=== PATIENT | female | born 1965 | race Caucasian/White ===

== ENCOUNTER 2018-05-20 22:39 | Emergency (ER) | payer OTHER ==
[~2018-05-20] VITALS: Ht 139.7 cm; Wt 60.3 kg
--- NOTE | 2018-05-20 22:48 | NUR ---
PT TAKEN TO BED 4
[2018-05-20 22:52] VITALS: BP 114/74
--- NOTE | 2018-05-20 22:57 | NUR ---
53/F. CO: RIGHT FLANK PAIN. 12/20. KIDNEY STONE REMOVAL 08/2018. AFEBRILE. EVEN UNLABORED BREATHING. AOX4. ABLE TO VERBALIZE NEEDS. RX ZOLOFT. ABD SOFT, NONTENDER. LBM 05/20. MADE AWARE. CONTINUE TO MONITOR.
--- NOTE | 2018-05-20 23:00 | NUR ---
Dr. Colunga evaluating patient at bedside.
[2018-05-20] MEDS ORDERED: NACL 0.9% 1,000 ML IV ONE ×2 (23:02→23:45)
[2018-05-20] MEDS ORDERED: ONDANSETRON 4 MG/2 ML VIAL IVP ONE (23:05)
[2018-05-20] MEDS ORDERED: MORPHINE SULFATE 4 MG/ML SYR IVP ONE (23:05)
[2018-05-20 23:18] LABS: APPEARANCE,URINE SL CLOUDY (CLEAR); BILIRUBIN,URINE NEGATIVE (NEGATIVE); BLOOD, URINE 2+ (NEGATIVE); COLOR,URINE YELLOW (YELLOW); LEUKOCYTE ESTERASE ,URINE TRACE (NEGATIVE); NITRITE, URINE POSITIVE (NEGATIVE); UGLUCOSE TRACE (NEGATIVE)
[2018-05-20 23:20] LABS: BASOPHILS % (AUTO) 0.3 % (0.0-2.0); EOSINOPHILS % (AUTO) 0.3 % (0.0-4.0); HEMATOCRIT 37.4 % (36-48); HEMOGLOBIN 11.9 g/dL (12.0-16.0); LYMPHOCYTES # (AUTO) 0.6 K/uL (2.5-16.5); MEAN CORPUSCULAR HEMOGLOBIN 27 pg (27-31); MEAN CORPUSCULAR HGB CONC 32 g/dL (33-37); MEAN CORPUSCULAR VOLUME 84.7 fL (80-94); MONOCYTES # (AUTO) 0.4 K/uL (0.8-1.0); MONOCYTES % (AUTO) 3.7 % (1.7-9.3); PLATELET COUNT (AUTO) 238 K/uL (140-450); RED BLOOD CELL COUNT(AUTO) 4.41 MIL/uL (4.20-5.40); RED CELL DISTRIBUTION WIDTH 15.7 % (11.6-13.7)
[2018-05-20 23:27] LABS: ANION GAP 12.3 (8-16); CARBON DIOXIDE 28.2 mmol/L (21-32); CREATININE 1.1 mg/dL (0.6-1.3); POTASSIUM 3.5 mmol/L (3.5-5.1)
[2018-05-20 23:32] LABS: ALBUMIN 3.6 g/dL (3.4-5.0); TOTAL BILIRUBIN 0.4 mg/dL (0.0-1.0)
[2018-05-20 23:34] LABS: LYMPHOCYTES % (AUTO) 4.7 % (20.5-51.1)
[2018-05-20 23:36] LABS: RBC,URINE 11-20 (MOD) /HPF (0-5)
[2018-05-20] MEDS ORDERED: KETOROLAC 30 MG/ML VIAL IVP ONE (23:45)
[2018-05-21] MEDS ORDERED: cefTRIAXone 1,000 MG VIAL ONE (00:02)
[2018-05-21 01:00] VITALS: BP 112/71
--- NOTE | 2018-05-21 01:00 | NUR ---
Patient discharged with v/s stable. Written and verbal after care instructions given and explained. Patient alert, oriented and verbalized understanding of instructions. Ambulatory with steady gait. All questions addressed prior to discharge. ID band removed. Patient advised to follow up with PMD. Rx of KEFLEX AND NAPROSYN given. Patient educated on indication of medication including possible reaction and side effects. Opportunity to ask questions provided and answered.
== END 2018-05-21 01:00 | disposition home or self-care (01) ==
LOC: EDSEX 22:39 → MED 22:39
DX: N20.0 Calculus of kidney (principal); N39.0 Urinary tract infection, site not specified; Z87.442 Personal history of urinary calculi
CPT/HCPCS: 36415; 74176; 80053; 81001; 81025; 83605; 83690; 85025; 85610; 85730; 87040; 87086; 87186; 96365; 96375; 99284; J0696; J1885; J2270; J2405

== ENCOUNTER 2021-06-15 01:30 | Inpatient (IN) | payer OTHER, SELFPAY ==
[~2021-06-15] VITALS: Ht 139.7 cm; Wt 60.8 kg
[2021-06-15 01:46] VITALS: BP 102/68
--- NOTE | 2021-06-15 01:50 | NUR ---
Dr. Devine at triage to exam patient.
[2021-06-15] MEDS ORDERED: MORPHINE SULFATE 4 MG/ML SYR IVP ONE (01:55)
[2021-06-15] MEDS ORDERED: ONDANSETRON 4 MG/2 ML VIAL IVP ONE (01:55)
[2021-06-15] MEDS ORDERED: NACL 0.9% 1,000 ML IV ONE ×2 (01:55→05:25)
--- NOTE | 2021-06-15 01:56 | NUR ---
PT AMBULATORY W STEADY GAIT TO BED 08.
--- NOTE | 2021-06-15 02:04 | NUR ---
PT TO CT VIA WHEEL CHAIR.
--- NOTE | 2021-06-15 02:04 | NUR ---
Patient taken to CT scan via wheel chair.
[2021-06-15 02:09] LABS: BASOPHILS % (AUTO) 0.1 % (0.0-2.0); EOSINOPHILS # (AUTO) 0.1 K/uL (0-0.4); EOSINOPHILS % (AUTO) 0.4 % (0.0-4.0); HEMATOCRIT 32.2 % (36-48); HEMOGLOBIN 10.5 g/dL (12.0-16.0); LYMPHOCYTES # (AUTO) 0.6 K/uL (2.5-16.5); LYMPHOCYTES % (AUTO) 4.5 % (20.5-51.1); MEAN CORPUSCULAR HEMOGLOBIN 28 pg (27-31); MEAN CORPUSCULAR HGB CONC 33 g/dL (33-37); MEAN CORPUSCULAR VOLUME 87.2 fL (80-94); MONOCYTES # (AUTO) 1.4 K/uL (0.8-1.0); MONOCYTES % (AUTO) 9.8 % (1.7-9.3); NEUTROPHILS # (AUTO) 12.3 K/uL (1.8-7.7); NEUTROPHILS % (AUTO) 85.2 % (42.2-75.2); PLATELET COUNT (AUTO) 399 K/uL (140-450); RED BLOOD CELL COUNT(AUTO) 3.69 MIL/uL (4.20-5.40); RED CELL DISTRIBUTION WIDTH 12.9 % (11.6-13.7); WHITE BLOOD COUNT (AUTO) 14.4 K/uL (4.8-10.8)
--- NOTE | 2021-06-15 02:10 | NUR ---
PT HAS SAT AT 90% . GIVEN 2L NS CANNULA. NOW 97 %
[2021-06-15 02:12] LABS: APPEARANCE,URINE CLOUDY (CLEAR); BILIRUBIN,URINE NEGATIVE (NEGATIVE); BLOOD, URINE 2+ (NEGATIVE); COLOR,URINE YELLOW (YELLOW); LEUKOCYTE ESTERASE ,URINE 3+ (NEGATIVE); NITRITE, URINE NEGATIVE (NEGATIVE); UGLUCOSE NEGATIVE (NEGATIVE)
[2021-06-15 02:20] LABS: RBC,URINE 0-5 /HPF (0-5)
[2021-06-15 02:21] LABS: WBC,URINE 20-60 /HPF (0-5)
[2021-06-15 02:26] LABS: ALBUMIN 2.4 g/dL (3.4-5.0); CARBON DIOXIDE 28.5 mmol/L (21-32); CREATININE 1.3 mg/dL (0.6-1.3); POTASSIUM 3.5 mmol/L (3.5-5.1); TOTAL BILIRUBIN 0.7 mg/dL (0.0-1.0)
--- NOTE | 2021-06-15 03:00 | NUR ---
56 y/o F BIB DAUGHTER FOR RUQ PAIN 6/10 FOR 10 DAYS. PT STATES SHE HAS FATTY LIVER X 4 YEARS AND SHE GETS FLAREUPS THAT ARE EXACBERATED BY COUGHING, UPSET STOMACH, OR TAKING TOO MANY PAIN MEDS. DENIES N/F/V/D; SKIN IS PINK/WARM/DRY; AAOX4 WITH EVEN AND STEADY GAIT; LUNGS CLEAR BL; PT IS LOW SAT 90% , PT PUT ON 2L NS, PT DENIES SOB. HR EVEN AND REGULAR; PATIENT STATES PAIN OF 7/10 AT THIS TIME; VSS; PATIENT POSITIONED FOR COMFORT; HOB ELEVATED; BEDRAILS UP X2; BED DOWN. 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 PT TAKES HTN MEDS TO PREVENT KIDNEY FAILURE.
--- NOTE | 2021-06-15 03:47 | NUR ---
PT STATES RELIEF OF PAIN . PAIN 2/10. ALL VSS
[2021-06-15] MEDS ORDERED: cefTRIAXone 2,000 MG in DEXTROSE 5% 100 ML IV ONE (05:25)
[2021-06-15] MEDS ORDERED: cefTRIAXone 2,000 MG VIAL ONE (05:29)
[2021-06-15] MEDS ORDERED: BEN10 PO (06:13)
[2021-06-15] MEDS ORDERED: ECON15CR TP (06:18)
[2021-06-15] MEDS ORDERED: METF-1253 PO (06:21)
[2021-06-15] MEDS ORDERED: FAMO20TA99 PO (06:24)
[2021-06-15] MEDS ORDERED: SERT25TA PO (06:30)
[2021-06-15] MEDS ORDERED: NOREPINEPHRINE 4 MG in DEXTROSE 5% 250 ML IV ONE (06:55)
[2021-06-15] MEDS ORDERED: NOREPINEPHRINE 4 MG/4 ML VIAL IV ONE (07:07)
--- NOTE | 2021-06-15 07:26 | NUR ---
Pt report given to JOSE D BUTLER. Transfer of care at this time.
--- NOTE | 2021-06-15 07:28 | NUR ---
RECEIVED REPORT FROM LORENA FARAH. TRANSFER OF CARE AT THIS TIME.
--- NOTE | 2021-06-15 07:28 | NUR ---
Shaquille martins in [facility] - 06/15/21 at 0745 by [facility] RECEIVED REPORT FROM JOSE D FARAH. TRANSFER OF CARE AT THIS TIME.
--- NOTE | 2021-06-15 07:46 | NUR ---
PT ADMITTD UNDER DR. PEREZ TELE-METRY ROOM 107B. ETA FOR BEDSIDE REPORT 10 MINUTES TO JOSE D ODONNELL.
[2021-06-15 08:40] VITALS: BP 101/57
--- NOTE | 2021-06-15 08:40 | NUR ---
PATIENT CAME FROM ER WHEELED BY 2 ER NURSE ON A GURNEY. RN GRACIE GAVE REPORT FOR CONTINUITY OF CARE. PATIENT ALERT ORIENTED. ON O2 AT 4L/MIN VIA NASAL CANULA. ON TELE BOX. NO SHORTNESS OF BREATH OR CONGESTION. COMPLAIN OF PAIN ON HEAD WHEN SHE COUGH OCCASIONAL IV SITE ON LEFT AC LOIDA 18. ORIENTED TO ROOM, TOILET, CALL LIGHT VISITING HOURS AND FOR FALL PREVENTION..
--- NOTE | 2021-06-15 08:46 | NUR ---
Patient will be admitted to care of Dr. Lomax. Admited to Tele. Will go to room 107B. Belongings list completed. [facility]
--- NOTE | 2021-06-15 09:25 | NUR ---
DR. PEREZ AT BED SIDE.
--- NOTE | 2021-06-15 10:29 | NUR ---
PATIENT ALERT ASKING IF SHE CAN DRINK WATER INFORM DR. PEREZ FOR DIET ORDER AND RESPONSE [facility] DIET. PATIENT AWARE AND GIVEN WATER AND JELLO AT THIS TIME.
--- NOTE | 2021-06-15 10:49 | NUR ---
PATIENT COMPLAINING OF COUGH AND BACK OF HEAD PAIN WHEN SHE COUGHING NO MEDS ORDER. INFORM DR. PEREZ WAITING FOR RESPONSE.
[2021-06-15 12:00] VITALS: BP 100/56
--- NOTE | 2021-06-15 12:20 | NUR ---
PATIENT AWAKE EATING LUNCH AT THIS TIME. ALL SAFETY MEASURE IN PLACE.
[2021-06-15] MEDS ORDERED: ONDANSETRON 4 MG/2 ML VIAL IM/IVP PRN (12:35)
[2021-06-15] MEDS ORDERED: ACETAMINOPHEN 325 MG TAB PO PRN (12:35)
[2021-06-15] MEDS ORDERED: POTASSIUM CHLORIDE 10 MEQ TABER PO PRN (12:35)
[2021-06-15] MEDS ORDERED: DOCUSATE SODIUM 100 MG GELCAP PO PRN (12:35)
[2021-06-15] MEDS ORDERED: ZOLPIDEM 5 MG TAB PO PRN (12:35)
[2021-06-15] MEDS ORDERED: MORPHINE SULFATE 2 MG/ML SYR IVP PRN (12:35)
[2021-06-15] MEDS: guaiFENesin DM 200/20 MG-10 ML 10 ML UDC PO PRN ×2 (12:55→20:48)
[2021-06-15] MEDS: HYDROcodone/APAP 7.5/325 MG 1 TAB PO PRN ×2 (12:56→22:30)
[2021-06-15] MEDS: NACL 0.9% 1,000 ML IV SCH (12:56)
--- NOTE | 2021-06-15 13:08 | NUR ---
Patient given pain medication and cough medication.
[2021-06-15 13:58] LABS: PROTHROMBIN TIME 10.8 secs (10.8-13.4)
--- NOTE | 2021-06-15 15:07 | NUR ---
PATIENT AWAKE ON PHONE NO DISTRESS NOTED. IV RUNNING AT 100 CC/HOUR NO FLUID OVER LOAD NOTED. NO FEVER OR CHILLS. NO ADVERSE REACTION NOTED ON ANTIBIOTIC THERAPY. CALL LIGHT WITH IN EASY REACH.
[2021-06-15 15:43] LABS: AMYLASE 28 U/L (25-115); CHOL/HDL RATIO 6.6 (1-4.5); FREE T4 (FREE THYROXINE) 1.07 ng/dL (0.76-1.46); HDL CHOLESTEROL 16 mg/dL (40-60); LDL (CALC) 66 mg/dL (60-100); LIPASE 142 U/L (73-393); PHOSPHORUS 2.6 mg/dL (2.5-4.9); THYROID STIMULATING HORMONE 0.58 uIU/mL (0.34-3.74); TRIGLYCERIDES 124 mg/dL (30-150)
[2021-06-15 16:00] VITALS: BP 93/60
--- NOTE | 2021-06-15 16:21 | NUR ---
PATIENT HAS BEEN SCREENED AND CATEGORIZED MODERATE NUTRITION RISK. PATIENT WILL BE SEEN WITHIN 3-5 DAYS OF ADMISSION. KAIN HERNANDEZ RD
--- NOTE | 2021-06-15 18:28 | NUR ---
PATIENT ON BED RESTING NO DISCOMFORT. IV RUNNING AT 100 CC/HOUR. NO FEVER CHILLS OR COMPLAIN OF PAIN. DAUGHTER AT BED SIDE. ALL SAFETY MEASURE IN PLACE.
--- NOTE | 2021-06-15 19:29 | NUR ---
GAVE REPORT TO CHIEF MEDICAL TECHNOLOGIST NURSE FOR CONTINUITY OF CARE.
[2021-06-15 20:00] VITALS: BP 107/56
[2021-06-16] VITALS: BP 90/57
[2021-06-16] MEDS: NACL 0.9% 1,000 ML IV SCH ×3 (01:16→18:26)
[2021-06-16 04:00] VITALS: BP 92/65
--- NOTE | 2021-06-16 06:00 | NUR ---
Pt A/O x4, no Sob on RA at this time, no c/o pain v/s stable, tolerated ivf as ordered, denies nausea or abd pain . Continue to monitor with plan of care.
[2021-06-16 07:08] LABS: T4 (THYROXINE) 6.4 ug/dL (4.5-12.0)
[2021-06-16 07:42] LABS: BASOPHILS % (AUTO) 0.2 % (0.0-2.0); EOSINOPHILS # (AUTO) 0.1 K/uL (0-0.4); EOSINOPHILS % (AUTO) 1.7 % (0.0-4.0); HEMATOCRIT 28.5 % (36-48); HEMOGLOBIN 9.3 g/dL (12.0-16.0); LYMPHOCYTES # (AUTO) 0.8 K/uL (2.5-16.5); LYMPHOCYTES % (AUTO) 10.2 % (20.5-51.1); MEAN CORPUSCULAR HEMOGLOBIN 29 pg (27-31); MEAN CORPUSCULAR HGB CONC 33 g/dL (33-37); MEAN CORPUSCULAR VOLUME 88.5 fL (80-94); MONOCYTES # (AUTO) 0.9 K/uL (0.8-1.0); NEUTROPHILS % (AUTO) 75.9 % (42.2-75.2); PLATELET COUNT (AUTO) 359 K/uL (140-450); RED BLOOD CELL COUNT(AUTO) 3.21 MIL/uL (4.20-5.40); RED CELL DISTRIBUTION WIDTH 13.2 % (11.6-13.7); WHITE BLOOD COUNT (AUTO) 7.9 K/uL (4.8-10.8)
[2021-06-16 07:45] LABS: CARBON DIOXIDE 26.4 mmol/L (21-32); CREATININE 0.9 mg/dL (0.6-1.3); POTASSIUM 3.4 mmol/L (3.5-5.1)
[2021-06-16 08:00] VITALS: BP 111/68
[2021-06-16] MEDS: PANTOPRAZOLE 40 MG TABEC PO SCH (10:05)
[2021-06-16] MEDS ORDERED: INSULIN LISPRO SLIDING SCALE 100 UNITS/ML VIAL SUBQ PRN (12:35)
[2021-06-16] MEDS ORDERED: DEXTROSE 50% 50 ML SYR IVP PRN (12:35)
[2021-06-16] MEDS: BLOOD GLUCOSE MONITORING 1 DEV DEV FS SCH ×2 (16:30→20:29)
[2021-06-16] MEDS: guaiFENesin DM 200/20 MG-10 ML 10 ML UDC PO PRN (17:01)
--- NOTE | 2021-06-16 19:25 | NUR ---
PT ENDORSED TO RETAIL MERCHANDISER TECHNICIAN NURSE FOR CONTINUITY OF CARE. POC DISCUSSED.
[2021-06-16 20:00] VITALS: BP 129/60
[2021-06-16] MEDS: HYDROcodone/APAP 7.5/325 MG 1 TAB PO PRN (20:27)
[2021-06-17] MEDS: HYDROcodone/APAP 7.5/325 MG 1 TAB PO PRN (00:23)
[2021-06-17 04:00] VITALS: BP 131/58
[2021-06-17] MEDS: NACL 0.9% 1,000 ML IV SCH ×2 (05:24→13:32)
[2021-06-17 06:48] LABS: BASOPHILS % (AUTO) 0.3 % (0.0-2.0); EOSINOPHILS # (AUTO) 0.1 K/uL (0-0.4); EOSINOPHILS % (AUTO) 2.1 % (0.0-4.0); HEMATOCRIT 28.2 % (36-48); HEMOGLOBIN 9.3 g/dL (12.0-16.0); LYMPHOCYTES # (AUTO) 0.9 K/uL (2.5-16.5); LYMPHOCYTES % (AUTO) 13.8 % (20.5-51.1); MEAN CORPUSCULAR HEMOGLOBIN 29 pg (27-31); MEAN CORPUSCULAR HGB CONC 33 g/dL (33-37); MEAN CORPUSCULAR VOLUME 87.4 fL (80-94); MONOCYTES # (AUTO) 0.8 K/uL (0.8-1.0); MONOCYTES % (AUTO) 13.3 % (1.7-9.3); NEUTROPHILS # (AUTO) 4.3 K/uL (1.8-7.7); NEUTROPHILS % (AUTO) 70.5 % (42.2-75.2); PLATELET COUNT (AUTO) 454 K/uL (140-450); RED BLOOD CELL COUNT(AUTO) 3.22 MIL/uL (4.20-5.40); RED CELL DISTRIBUTION WIDTH 13.4 % (11.6-13.7); WHITE BLOOD COUNT (AUTO) 6.1 K/uL (4.8-10.8)
--- NOTE | 2021-06-17 07:15 | NUR ---
RECEIVED REPORT FROM GAS STATION ATTENDANT. PT IS AWAKE, WITH BREATHING UNLABORED, AND ON RA. A&OX4. ON CARB CONTROLLED DIET. CONTINENT OF THE BOWEL AND BLADDER. IV SITE ON FA, RUNNING AT 100 ML/HR NS. SKIN IS INTACT, WARM, DRY. PT IS STABLE. PLAN OF CARE DISCUSSED.
[2021-06-17 07:33] LABS: CARBON DIOXIDE 26.8 mmol/L (21-32); CREATININE 0.9 mg/dL (0.6-1.3); POTASSIUM 3.8 mmol/L (3.5-5.1)
[2021-06-17] MEDS: BLOOD GLUCOSE MONITORING 1 DEV DEV FS SCH ×4 (07:54→20:52)
[2021-06-17] MEDS: PANTOPRAZOLE 40 MG TABEC PO SCH (08:57)
--- NOTE | 2021-06-17 09:30 | NUR ---
PT IS RESTING IN SEMI FOWLERS POSITION. NO DISTRESS NOTED. PT DENIES PAIN. AMBULATED TO THE RESTROOM WITHOUT ASSIST. PT IS STABLE.
--- NOTE | 2021-06-17 11:08 | NUR ---
DC PLANNING: RECEIVED A CALL FROM [employer] [phone] SPOKE WITH COLBY CM UPDATED HER PT'S CLINICAL. PER COLBY 06/15 AND 06/16/21 GOT APPROVED WILL FAX THE HARD COPY. PER COLBY SHE CAN BE REACHED FOR ANY DC PLAN. CM TO FOLLOW
--- NOTE | 2021-06-17 11:47 | NUR ---
PT STATES SHE TAKES ZOLOFT 25 MG PO IN THE MORNING ONCE A DAY. PROVIDED THIS INFORMATION TO DR. SYKES AND HE STATED TO PLACE THE ORDER FOR THE MEDICATION DAILY.
[2021-06-17] MEDS ORDERED: SERTRALINE 50 MG TAB PO SCH (11:52)
--- NOTE | 2021-06-17 12:00 | NUR ---
PT WAS AWAKE, LYING ON HER BED. NO DISTRESS AT THIS TIME. WILL CONTINUE TO MONITOR.
--- NOTE | 2021-06-17 12:47 | NUR ---
DC PLANNING: THE PATIENT ADMITTED FROM HOME WITH C/O RUQ PAIN WITH A H/O KIDNEY STONES AND UTI'S. CT SCAN ABD SHOWS RIGHT UVJ OBSTRUCTIVE UROPATHY WITH HYDRONEPHROSIS. WBC'S 14.4, PATIENT STARTED ON ROCEPHIN IV, ORDERS FOR UROLOGY CONSULT. CM SPOKE WITH THE PATIENT AT BEDSIDE AND CONFIRMED HER ADDRESS AND PHONE NUMBER. 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 SHE SEES HER PCP DR ESCOBAR REGULARLY AND WILL BE FOLLOWING UP WITH DR HUTTON HER NEPHROLOGY GROUP IS CLOSING. SHE HAS DME OF A GLUCOMETER AND HAS NO ACTIVITY LIMITATIONS OR DC NEEDS AT THIS TIME. THE PATIENT WILL RETURN HOME WHEN CLINICALLY STABLE FOR DC, CM WILL FOLLOW. Addendum: 06/17/21 at 1254 by Nalini Kirby CM Amended: Links added. Addendum: 06/18/21 at 1222 by Nalini Kirby CM DC PLANNING: PATIENT PENDING SENSITIVITY FOR URINE CULTURES, PRELIMINARY RESULTS OF GRAM NEGATIVE RODS. ATTENDING MD ANTICIPATES PATIENT WILL NEED IV ABX, JOVAN LEFT MESSAGES FOR JOVAN MEAD AT [facility], ([phone]), ALSO FAXED ORDER FOR HOME HEALTH AND CLINICALS TO ANGELINA AT [facility] ([phone]). CM WILL FOLLOW AND PROVIDE INFORMATION ON IV ABX NEEDED ONCE THAT IS DETERMINED. CM WILL FOLLOW. Addendum: 06/18/21 at 1357 by Nalini Kirby CM DC PLANNING: JOVAN SPOKE WITH COLBY AT [facility] ([phone]), ENDORSED POTENTIAL NEED FOR HOME HEALTH FOR IV ABX. COLBY FAXED A LIST OF CONTRACTED AGENCIES, [facility] IS PREFERRED AGENCY. JOVAN CALLED [facility] ([phone]), MESSAGE LEFT FOR THE COORDINATOR, CLINICAL PACKET AND ORDERS FOR HOME HEALTH FAXED TO [facility] AT [phone]. SENSITIVITIES FOR URINE CULTURE NOT YET RESULTED, FINAL IV ABX ORDERS NOT YET IN SYSTEM. JOVAN SPOKE WITH THE PATIENT AT BEDSIDE TO EXPLAIN CURRENT ARRANGEMENTS AND BARRIERS, MIDLINE ACCESS TO BE PLACED TODAY. IF ABX ARE ORDERED AFTER JOVAN LEAVES, ORDER NEEDS TO BE FAXED TO [facility] AT ABOVE FAX NUMBER AND PHONE FOLLOW UP TO CONFIRM SERVICE AT THE PHONE NUMBER LISTED ABOVE IS ALSO NEEDED. JOVAN WILL FOLLOW. Addendum: 06/18/21 at 1411 by Nalini Kirby CM DC PLANNING: CM SPOKE WITH DIANE AT [facility], THE PATIENTS REFERRAL WILL BE PROCESSED AND THEY WILL START WORKING ON AUTHORIZATION FOR SERVICES. CM WILL FOLLOW. Addendum: 06/18/21 at 1636 by Nalini Kirby CM DC PLANNING: SENSITIVITY FOR UC RESULTED E-COLI, PATIENT WILL NOT NEED IV ABX. CM SPOKE WITH RAMIRO AT [facility] TO CANCEL THE REFERRAL. CM WILL FOLLOW.
[2021-06-17] MEDS: cefTRIAXone 2,000 MG in DEXTROSE 5% 100 ML IV SCH (12:56)
[2021-06-17] MEDS: guaiFENesin DM 200/20 MG-10 ML 10 ML UDC PO PRN ×2 (14:22→21:59)
--- NOTE | 2021-06-17 14:22 | NUR ---
GAVE ROBITUSSIN MEDICATION ORDERED FOR PT'S COUGH. WILL MONITOR COUGH.
[2021-06-17 16:00] VITALS: BP 118/69
--- NOTE | 2021-06-17 16:00 | NUR ---
SEEN PT LYING ON HER BED, AWAKE. PT BREATHING UNLABORED. WILL CONTINUE TO MONITOR.
--- NOTE | 2021-06-17 16:08 | NUR ---
DC PLANNING PATIENT IS A 56 YR OLD FEMALE WHO PRESEMTED TO THE [facility]/ED ON 06/15/21 FOR PAIN IN RIGHT UPPER QUADRANT THAT PATIENT REPORTS HAS BEEN ON AND OFF FOR THE PAST COUPLE OF WEEKS. SW MET WITH CLIENT AND (DENVER KENNEDY) AT BEDSIDE TO DISCUSS AND GATHER COLLATERAL INFORMATION. PATIENT REPORTS LIVING IN A HOME WITH HER PARTNER, DAUGHTER, DAUGHTERS BOYFRIEND, AND GRANDCHILDREN. PATIENT IDENTIFIED EMERGENCY CONTACT AND MEDICAL DECISION MAKER DON MARCIA () [phone]. SW INQUIRED ON A.D; PATIENT DENIED CURRENTLY HAVING ONE IN PLACE AT THIS TIME. SW PROVIDED PATIENT AND WITH EDUCATION ON A.D AND OFFERED TO LEAVE A.D PACKET WITH CLIENT TO REVIEW WHEN SHE BELIEVED THE TIME WAS RIGHT. PATIENT DECLINED PACKET AND REPORTED I DONT THINK I NEED THAT RIGHT NOW. PATIENT REPORTS THAT SHE WILL BE RETURNING HOME, OR DAUGHTER WILL PROVIDE PATIENT WITH TRANSPORTATION ONCE CLEARED FOR DISCHARGE. PATIENT REPORTS AND DAUGHTER WILL AID IN CARING FOR HER. PATIENT REPORTS SUFFICIENT FRIEND AND FAMILY SUPPORT. PATIENT DENIED BARRIERS IN ACCESSING MEDICATIONS AND ACQUIRES MEDICATION WHEN NEEDED FROM [facility] IN THE [facility]. PATIENT REPORTS BEING AMBULATORY WITH NO ASSISTANCE. PATIENT REPORTS MEETING WITH PCP DR. NICOLE ESCOBAR REGULARLY. SW SPOKE WITH PATIENT ABOUT THE IMPORTANCE OF FOLLOW UP CARE ONCE DISCHARGED. PATIENT ACKNOWLEDGED AND REPORTS THAT SHE WILL FOLLOW UP NEEDED. SW INQUIRED ON ANY ADDITIONAL RESOURCES NEEDED AT THIS TIME; PATIENT DECLINED NEED FOR RESOURCES AT THIS TIME. SW WILL FOLLOW UP NEEDED.
--- NOTE | 2021-06-17 18:00 | NUR ---
PT LYING ON HER BED, AWAKE AND TALKING WITH A VISITOR. V/S TAKEN AND RECORDED, AND WITHIN NORMAL LIMITS.
--- NOTE | 2021-06-17 19:10 | NUR ---
GAVE REPORT TO CORRECTIONS IDENTIFICATION TECHNICIAN NURSE. V/S ARE WITHIN NORMAL LIMITS. PT NOT IN DISTRESS AT THIS TIME. PLAN OF CARE DISCUSSED FOR CONTINUITY OF CARE.
--- NOTE | 2021-06-17 19:11 | NUR ---
RECEIVED PATIENT FROM ANGEL JEFFERY FOR CONTINUITY OF CARE. PATIENT IS STABLE IN BED. PATIENT IS ALERT AND ORIENTED X 4. DENIES ANY PAIN/DISCOMFORT. ON ROOM AIR. RESPIRATIONS EVEN AND UNLABORED. IV SITE CLEAN AND PATENT ONTHE RIGHT FOREARM WITH 20 LOIDA. SKIN INTACT. PATIENT IS AMBULATORY WITH MINIMAL ASSIST AWARE TO USE CALL. LIGHT. BED AT THE LOWEST POSITION SIDE RAILS X 2 FOR ASSISTANCE. CALL LIGHT IN REACH. PATIENT WAS ENCOURAGED TO USE THE CALL LIGHT FOR ALL NEEDS AND ASSISTANCE. WILL CONTINUE TO MONITOR.
--- NOTE | 2021-06-17 19:30 | NUR ---
Patient's Plan of Care was discussed and reviewed with FARMWORKER GENERAL: HANNAH ZAPIEN
[2021-06-17 20:00] VITALS: BP 109/69
--- NOTE | 2021-06-17 21:00 | NUR ---
ACCUCHECK PER MD ORDER. TOLERATED WELL. NO COVERAGE NEEDED. PER MD ORDER. DENIES PAIN. RESPIRATIONS EVEN AND UNLABORED WITH NO APPARENT S/SX OF ACUTE DISTRESS. OFFERED SNACK AND PT DECLINED. WHITE COMMUNICATION BOARD UPDATED. ALL SAFETY MEASURES ARE IN PLACE. CALL LIGHT WITHIN REACH. WILL CONTINUE TO MONITOR.
--- NOTE | 2021-06-17 21:59 | NUR ---
PT C/O COUGH. MEDICATED PER PRN ORDER. TOLERATED WELL.
--- NOTE | 2021-06-17 23:11 | NUR ---
PATIENT REMAINS IN BED ASLEEP. NO NOTED S/SX OF ACUTE DISTRESS. NO NOTED S/SX OF ACUTE RESPIRATORY DISTRESS. ALL SAFETY MEASURES ARE IN PLACE. CALL LIGHT WITHIN REACH. WILL CONTINUE TO MONITOR.
[2021-06-18] MEDS: NACL 0.9% 1,000 ML IV SCH ×2 (00:35→04:11)
--- NOTE | 2021-06-18 03:11 | NUR ---
CHECKED PT. STABLE AND ASLEEP. CHEST IS RISING AND FALLING. RESPIRATIONS EVEN AND UNLABORED WITH NO APPARENT S/SX OF ACUTE DISTRESS. WHITE COMMUNICATION BOARD UPDATED. ALL SAFETY MEASURES IN PLACE. CALL LIGHT WITHIN REACH. WILL CONTINUE TO MONITOR.
--- NOTE | 2021-06-18 05:11 | NUR ---
PATIENT IN BED ASLEEP RESTING. NO NOTED S/SX OR RESPIRATORY DISTRESS. NO NOTED ACUTE PAIN/DISCOMFORT. SAFETY MEASURES ARE IN PLACE. CALL LIGHT WITHIN REACH. WILL CONTINUE TO MONITOR.
[2021-06-18] MEDS: BLOOD GLUCOSE MONITORING 1 DEV DEV FS SCH ×3 (06:37→16:50)
[2021-06-18 06:52] LABS: BASOPHILS % (AUTO) 0.1 % (0.0-2.0); EOSINOPHILS # (AUTO) 0.1 K/uL (0-0.4); EOSINOPHILS % (AUTO) 1.3 % (0.0-4.0); HEMATOCRIT 29.8 % (36-48); LYMPHOCYTES # (AUTO) 0.9 K/uL (2.5-16.5); LYMPHOCYTES % (AUTO) 13.2 % (20.5-51.1); MEAN CORPUSCULAR HEMOGLOBIN 29 pg (27-31); MEAN CORPUSCULAR HGB CONC 34 g/dL (33-37); MEAN CORPUSCULAR VOLUME 86.2 fL (80-94); MONOCYTES # (AUTO) 0.9 K/uL (0.8-1.0); MONOCYTES % (AUTO) 12.7 % (1.7-9.3); NEUTROPHILS # (AUTO) 5.1 K/uL (1.8-7.7); NEUTROPHILS % (AUTO) 72.7 % (42.2-75.2); PLATELET COUNT (AUTO) 505 K/uL (140-450); RED BLOOD CELL COUNT(AUTO) 3.46 MIL/uL (4.20-5.40); RED CELL DISTRIBUTION WIDTH 13.2 % (11.6-13.7)
--- NOTE | 2021-06-18 07:20 | NUR ---
ENDORSED PATIENT TO CHANCE RN FOR CONTINUITY OF CARE. PATIENT IS STABLE.
[2021-06-18 07:44] LABS: ANION GAP 11.5 (8-16); CARBON DIOXIDE 25.1 mmol/L (21-32); CREATININE 0.8 mg/dL (0.6-1.3); POTASSIUM 3.6 mmol/L (3.5-5.1)
[2021-06-18] MEDS: PANTOPRAZOLE 40 MG TABEC PO SCH (08:45)
[2021-06-18] MEDS ORDERED: SERTRALINE 50 MG TAB PO SCH (09:00)
--- NOTE | 2021-06-18 11:13 | NUR ---
06/18/21 RD INITIAL ASSESSMENT COMPLETED PLEASE REFER TO NUTRITION ASSESSMENT UNDER CARE ACTIVITY FOR ESTIMATED NUTRITIONAL NEEDS. 1. CONTINUE CCHO 60GM DIET TOLERATED -RECOMMEND GLUCERNA BID IF PO INTAKE IS < 75% 2. MONITOR NUTRITION-RELATED LAB VALUES 3. RD TO FOLLOW-UP 3-5 DAYS, MODERATE RISK KAIN HERNANDEZ RD
[2021-06-18] MEDS: cefTRIAXone 2,000 MG in DEXTROSE 5% 100 ML IV SCH (14:13)
[2021-06-18] MEDS ORDERED: CEFU-18 PO (16:47)
[2021-06-18] MEDS ORDERED: TAMS0.4C96 PO (16:50)
[2021-06-18 16:51] VITALS: BP 118/73
== END 2021-06-18 17:23 | disposition home or self-care (01) | DRG 871 ==
LOC: MED 01:30 → MTU 07:46
PROVIDERS: ADMIT Family Medicine; ATTEND Family Medicine
DX: A41.9 Sepsis, unspecified organism (principal); E43 Unspecified severe protein-calorie malnutrition; N13.6 Pyonephrosis; N39.0 Urinary tract infection, site not specified; E11.22 Type 2 diabetes mellitus with diabetic chronic kidney disease; N18.30 Chronic kidney disease, stage 3 unspecified; Z20.822 Contact with and (suspected) exposure to COVID-19; E87.6 Hypokalemia; K76.0 Fatty (change of) liver, not elsewhere classified; Z79.899 Other long term (current) drug therapy; Z93.3 Colostomy status; Z90.710 Acquired absence of both cervix and uterus; Z90.49 Acquired absence of other specified parts of digestive tract; Z87.442 Personal history of urinary calculi; Z68.31 Body mass index [BMI] 31.0-31.9, adult
CPT/HCPCS: 36415; 71045; 80048; 80053; 81001; 82140; 82150; 82948; 83036; 83605; 83690; 83735; 83880; 84100; 84436; 84439; 84443; 84479; 84484; 85025; 85610; 85730; 87040; 87081; 87086; 96361; 96365; 96375; 99291; J0696; J1815; J2270; J2405; J3490; J7030; J7060